=== PATIENT | male | born 1940 | race Caucasian/White ===

== ENCOUNTER 2017-04-12 09:08 | Outpatient (CLI) | payer MEDICARE ==
--- NOTE | 2017-04-12 14:15 | PET ---
PET SCAN WITH CT ATTENUATION CORRECTION: HISTORY: Solitary pulmonary nodule. COMPARISON: None. Outside CT performed at [facility] is not available. TECHNIQUE: PET scanning with CT attenuation correction is performed from the base of the brain to the proximal t highs following the intravenous administration of 13.04 mCi [id number]. FINDINGS: HEAD/NECK: No abnormal FDG localization. CHEST: There is a spiculated lesion in the right lung apex with small calcifications. This lesion has irregu lar margination. Maximum SUV is 1.8, suggesting scarring. There is a subcentimeter nodule in the righ t upper lobe, with a maximum SUV of 0.8. Calcified granulomatous lesions are noted throughout the radha g parenchyma on CT attenuation correction. ABDOMEN/PELVIS: No abnormal FDG localization. There is evidence of marked distention of the left intra and extrarenal collecting system with tortuo sity of the left ureter. There also appears to be mild to moderate prominence of the right intra and extrarenal collecting system. There is a markedly distended urinary bladder. Correlate for possible b ladder outlet obstruction. There is asymmetric FDG localization in the left hemiscrotum which may be associated with the left te sticle. There appears to be a left-sided hydrocele. Testicular findings are nonspecific. OSSEOUS STRUCTURES: No abnormal FDG localization. IMPRESSION: 1. No evidence of hypermetabolic activity in the right upper lobe. Irregular opacity in the right up per lobe likely represents an area of scarring. 2. There is markedly distended urinary bladder with bilateral hydronephrosis as detailed above. Alberto tionally, there is hypermetabolic activity in the left hemiscrotum which may be associated with the t esticle. There is a left-sided hydrocele. The constellation of urographic findings requires a urology consultation. CODE T. POS: DEB
== END 2017-04-12 09:09 | disposition home or self-care (01) ==
LOC: PET 09:08
PROVIDERS: ATTEND Internal Medicine Critical Care Medicine
DX: R91.1 Solitary pulmonary nodule (principal); N32.89 Other specified disorders of bladder; N13.30 Unspecified hydronephrosis; N43.3 Hydrocele, unspecified
CPT/HCPCS: 78815; A9552